=== PATIENT | female | born 1945 | race Caucasian/White ===

== ENCOUNTER 2018-03-24 18:31 | Inpatient (IN) | payer OTHER ==
[~2018-03-24] VITALS: Ht 160 cm; Wt 69.8 kg
[2018-03-25 14:15] VITALS: BP 106/72
[2018-03-25] MEDS ORDERED: ONDANSETRON 2MG/ML, 2ML IVPush PRN (14:30)
[2018-03-25] MEDS ORDERED: MORPHINE SULFATE 4 MG/ML, 1ML IVPush PRN (14:30)
[2018-03-25] MEDS ORDERED: ONDANSETRON ODT 4 MG PO PRN (14:30)
[2018-03-25] MEDS ORDERED: DO NOT GIVE MC SCH (15:00)
[2018-03-25] MEDS ORDERED: PLEASE ENTER ALLERGIES MC SCH (15:00)
[2018-03-25 15:14] LABS: BASOPHILS # (AUTO) 0.03 x10^3/uL (0-0.1); BASOPHILS % (AUTO) 0 % (0-1); EOSINOPHILS # (AUTO) 0.07 x10^3/uL (0-0.4); EOSINOPHILS % (AUTO) 1 % (1-7); LYMPHOCYTES # (AUTO) 1.09 x10^3/uL (1-3.4); LYMPHOCYTES % (AUTO) 16 % (22-44); MD NO; MEAN CORPUSCULAR HEMOGLOBIN 24.8 pg (27.0-34.8); MEAN CORPUSCULAR HGB CONC 31.7 g/dL (32.4-35.8); MEAN CORPUSCULAR VOLUME 78.4 fL (80-100); MEAN PLATELET VOLUME 8.8 fL (7.4-10.4); MONOCYTES # (AUTO) 0.73 x10^3/uL (0.2-0.8); MONOCYTES % (AUTO) 11 % (2-9); NEUTROPHILS # (AUTO) 4.86 x10^3/uL (1.8-6.8); NEUTROPHILS % (AUTO) 72 % (42-75); PLATELET COUNT 290 x10^3/uL (130-400); RED BLOOD COUNT 4.93 x10^6/uL (3.82-5.3); RED CELL DISTRIBUTION WIDTH 16.5 % (9.6-15.2)
[2018-03-25 15:22] LABS: ALANINE AMINOTRANSFERASE 17 U/L (12-78); ALBUMIN 3.8 g/dL (3.4-5.0); ANION GAP 5 mmol/L (5-15); CHLORIDE 107 mmol/L (98-107); CREATININE 0.71 mg/dL (0.55-1.02)
[2018-03-25 15:24] LABS: ALKALINE PHOSPHATASE 58 U/L (45-117); BILIRUBIN,TOTAL 0.6 mg/dL (0.2-1.0); TOTAL PROTEIN 7.7 g/dL (6.4-8.2)
[2018-03-25 15:36] LABS: INTERNATIONAL NORMALIZED RATIO 1.03 (0.93-1.1); PROTHROMBIN TIME 10.7 Seconds (9.6-11.5)
[2018-03-25 15:44] LABS: HEMOGLOBIN A1C 6.6 % (4.2-6.3)
[2018-03-25] MEDS: INSULIN LISPRO 100 UNITS/ML, PEN SQ-INSULIN SCH ×2 (16:00→22:02)
[2018-03-25] MEDS: CARVEDILOL 6.25 MG TABLET PO SCH (17:49)
[2018-03-25] MEDS ORDERED: LORazepam 0.5MG TABLET PO PRN (19:00)
[2018-03-25 20:04] VITALS: BP 96/63
[2018-03-25] MEDS: SODIUM CHLORIDE FLUSH 10ML SYR IVF SCH (20:47)
[2018-03-25] MEDS: ATORVASTATIN 10 MG TABLET PO SCH (20:47)
[2018-03-25 20:54] VITALS: BP_SYST 100; BP_SYST 109; BP_DIAS 67; BP_DIAS 74
[2018-03-25] MEDS: MUPIROCIN OINT 2%, 22GM TP SCH (22:02)
[2018-03-25] MEDS: CHLORHEXIDINE 15 ML BOTTLE MM SCH (22:10)
[2018-03-26 01:01] VITALS: BP 101/68
[2018-03-26 04:17] VITALS: BP_SYST 106; BP_SYST 113; BP_DIAS 71; BP_DIAS 77
[2018-03-26] MEDS: INSULIN LISPRO 100 UNITS/ML, PEN SQ-INSULIN SCH (05:09)
[2018-03-26] MEDS: CHLORHEXIDINE 15 ML BOTTLE MM SCH (05:13)
[2018-03-26] MEDS: MUPIROCIN OINT 2%, 22GM TP SCH ×2 (05:13→19:33)
[2018-03-26] MEDS: CARVEDILOL 6.25 MG TABLET PO SCH (05:14)
[2018-03-26 05:36] LABS: BASOPHILS # (AUTO) 0.03 x10^3/uL (0-0.1); BASOPHILS % (AUTO) 0 % (0-1); EOSINOPHILS # (AUTO) 0.08 x10^3/uL (0-0.4); EOSINOPHILS % (AUTO) 1 % (1-7); LYMPHOCYTES % (AUTO) 18 % (22-44); MD NO; MEAN CORPUSCULAR HEMOGLOBIN 25.3 pg (27.0-34.8); MEAN CORPUSCULAR HGB CONC 32.1 g/dL (32.4-35.8); MEAN PLATELET VOLUME 8.9 fL (7.4-10.4); MONOCYTES # (AUTO) 0.63 x10^3/uL (0.2-0.8); MONOCYTES % (AUTO) 10 % (2-9); NEUTROPHILS # (AUTO) 4.64 x10^3/uL (1.8-6.8); NEUTROPHILS % (AUTO) 71 % (42-75); PLATELET COUNT 267 x10^3/uL (130-400); RED BLOOD COUNT 4.89 x10^6/uL (3.82-5.3); RED CELL DISTRIBUTION WIDTH 15.6 % (9.6-15.2)
[2018-03-26 05:43] LABS: ALANINE AMINOTRANSFERASE 18 U/L (12-78); ALBUMIN 3.8 g/dL (3.4-5.0); ANION GAP 8 mmol/L (5-15); CALCIUM 9.2 mg/dL (8.5-10.1); CHLORIDE 106 mmol/L (98-107)
[2018-03-26 05:45] LABS: ALKALINE PHOSPHATASE 57 U/L (45-117); BILIRUBIN,TOTAL 0.7 mg/dL (0.2-1.0); TOTAL PROTEIN 7.8 g/dL (6.4-8.2)
[2018-03-26 06:00] LABS: MICROSCOPIC INDICATED
[2018-03-26] MEDS ORDERED: ASPIRIN 325 MG TABLET PO SCH (06:00)
[2018-03-26] MEDS ORDERED: HEPARIN 1,000 UNITS/ML, 10ML ONE (06:12)
[2018-03-26] MEDS ORDERED: PAPAVERINE 30 MG/ML, 2ML ONE (06:12)
[2018-03-26] MEDS ORDERED: SUFentanil 50 MCG/ML, 5ML ONE (06:46)
[2018-03-26] MEDS ORDERED: MIDAZOLAM 10MG/2 ML ONE (06:46)
[2018-03-26] MEDS ORDERED: VANCOMYCIN PMX 1GM/200ML 200 ML IV ONE (07:00)
[2018-03-26] MEDS ORDERED: CEFAZOLIN PMX 2GM/50ML 50 ML IVPB ONE (07:00)
[2018-03-26] MEDS ORDERED: ALBUMIN HUMAN 5% 500 ML IV PRN (07:30)
[2018-03-26] MEDS ORDERED: REGULAR INSULIN 62.5 UNITS in SODIUM CHLORIDE 0.9% 249.375 ML IV PRN ×2 (07:30→11:24)
[2018-03-26] MEDS ORDERED: MANNITOL PMX 20% 500 ML IVPB PRN (07:30)
[2018-03-26] MEDS ORDERED: DEXMEDETOMIDINE 200 MCG in SODIUM CHLORIDE 0.9% 48 ML IV SCH (07:30)
[2018-03-26] MEDS ORDERED: POTASSIUM CHLORIDE 80 MEQ, SODIUM BICARBONATE 8.4% 10 MEQ, MAGNESIUM SULFATE 0.5 GM, LI... IV PRN (07:30)
[2018-03-26] MEDS ORDERED: PHENYLEPHRINE 10 MG in SODIUM CHLORIDE 0.9% 249 ML IV PRN ×2 (07:30→11:24)
[2018-03-26] MEDS ORDERED: EPINEPHRINE 2 MG in SODIUM CHLORIDE 0.9% 248 ML IV SCH (07:30)
[2018-03-26] MEDS ORDERED: HEPARIN 1,000 UNITS/ML, 10ML IV ONE (08:22)
[2018-03-26] MEDS ORDERED: PAPAVERINE 30 MG/ML, 2ML IVPush ONE (08:24)
[2018-03-26] MEDS ORDERED: SPIRONOLACTONE 25 MG TABLET PO SCH (09:00)
[2018-03-26] MEDS ORDERED: AMLODIPINE 5 MG TABLET PO SCH (09:00)
[2018-03-26] MEDS ORDERED: VALSARTAN 80 MG TABLET PO SCH (09:00)
[2018-03-26] MEDS ORDERED: ROCURONIUM 10MG/ML,5ML ONE ×2 (09:42)
[2018-03-26] MEDS ORDERED: PROTAMINE SULFATE 10 MG/ML, 25ML ONE ×2 (09:42→10:39)
[2018-03-26] MEDS ORDERED: VASOPRESSIN 20 UNIT/ML, 1ML ONE (09:43)
[2018-03-26] MEDS ORDERED: AMINOCAPROIC ACID 250 MG/ML, 20ML ONE ×2 (09:43)
[2018-03-26] MEDS ORDERED: CALCIUM CHLORIDE 10%, 10ML SYR ONE (10:39)
[2018-03-26] MEDS ORDERED: HEPARIN 1,000 UNITS/ML, 30ML ONE (11:21)
[2018-03-26] MEDS ORDERED: ALBUMIN HUMAN 25% 50 ML ONE (11:22)
[2018-03-26] MEDS ORDERED: SODIUM BICARBONATE 1 MEQ/ML, 50ML VIAL ONE (11:22)
[2018-03-26] MEDS ORDERED: LIDOCAINE 2% 100MG/5ML SYRINGE ONE (11:22)
[2018-03-26] MEDS ORDERED: DEXMEDETOMIDINE 200 MCG in SODIUM CHLORIDE 0.9% 48 ML IV PRN (11:24)
[2018-03-26] MEDS ORDERED: NITROGLYCERIN/D5W PMX 250 ML IV PRN (11:24)
[2018-03-26] MEDS ORDERED: DOBUTAMINE 250 MG in SODIUM CHLORIDE 0.9% 230 ML IV PRN (11:24)
[2018-03-26] MEDS ORDERED: VASOPRESSIN 50 UNIT in SODIUM CHLORIDE 0.9% 250 ML IV PRN (11:24)
[2018-03-26] MEDS ORDERED: SODIUM CHLORIDE 0.9% 1,000 ML IV PRN (11:24)
[2018-03-26] MEDS ORDERED: morphine SULFATE 10 MG/ML, 1ML IVPush PRN (11:30)
[2018-03-26] MEDS ORDERED: PROCHLORPERAZINE 5 MG/ML, 2ML IVPush PRN (11:30)
[2018-03-26] MEDS ORDERED: DEXTROSE 50%, 50ML SYRINGE IVPush PRN (11:30)
[2018-03-26] MEDS ORDERED: BISACODYL 5 MG EC TABLET PO PRN (11:30)
[2018-03-26] MEDS ORDERED: VANCOMYCIN PMX 1GM/200ML 200 ML IVPB SCH (11:30)
[2018-03-26] MEDS ORDERED: DEXTROSE 4 GM TAB.CHEW PO PRN (11:30)
[2018-03-26] MEDS ORDERED: ACETAMINOPHEN 650 MG SUPP PR PRN (11:30)
[2018-03-26] MEDS ORDERED: GLUCAGON 1 MG IM PRN (11:30)
[2018-03-26] MEDS ORDERED: BISACODYL 10 MG SUPP PR PRN (11:30)
[2018-03-26] MEDS ORDERED: EPINEPHRINE 2 MG in SODIUM CHLORIDE 0.9% 248 ML IV PRN (11:30)
[2018-03-26] MEDS ORDERED: INSULIN REGULAR 100 UNITS/ML, 3ML VIAL IVPush PRN (11:30)
[2018-03-26] MEDS ORDERED: MIDAZOLAM 1 MG/ML, 5ML IVPush PRN (11:30)
[2018-03-26] MEDS ORDERED: SODIUM BICARB 8.4%, 50ML SYRINGE IV PRN (11:30)
[2018-03-26] MEDS ORDERED: CEFUROXIME 1.5 GM in SODIUM CHLORIDE 0.9% 50 ML IVPB SCH (11:30)
[2018-03-26] MEDS ORDERED: ACETAMINOPHEN 325 MG TABLET PO PRN (11:30)
[2018-03-26] MEDS ORDERED: ONDANSETRON 2MG/ML, 2ML IVPush PRN (11:30)
[2018-03-26 12:01] LABS: GLUCOSE BY BLOOD GAS ANALYZER 170 mg/dL (70-110); HEMOGLOBIN BY BLOOD GAS ANALYZ 10.9 g/dL (14.0-18.0)
[2018-03-26 12:10] LABS: INTERNATIONAL NORMALIZED RATIO 1.23 (0.93-1.1); PROTHROMBIN TIME 12.7 Seconds (9.6-11.5)
[2018-03-26] MEDS: MAGNESIUM SULFATE 1 GM in SODIUM CHLORIDE 0.9% 50 ML IVPB SCH (12:49)
[2018-03-26] MEDS: LACTATED RINGERS 1,000 ML IV PRN ×3 (13:16→15:55)
[2018-03-26] MEDS: DOCUSATE 100 MG CAPSULE PO SCH ×2 (13:18→19:33)
[2018-03-26] MEDS: SODIUM CHLORIDE FLUSH 10ML SYR IVF SCH ×2 (13:18→19:33)
[2018-03-26] MEDS: FUROSEMIDE 20 MG/2 ML IV SCH (13:18)
[2018-03-26] MEDS: KSCALE TO 4.5 IV SCH ×3 (13:19→23:09)
[2018-03-26] MEDS ORDERED: INSULIN LISPRO 100 UNITS/ML, PEN SQ-INSULIN SCH (16:00)
[2018-03-26] MEDS ORDERED: ALBUMIN HUMAN 5% 250 ML IV ONE (16:00)
[2018-03-26] MEDS: FENTANYL PF 100 MCG/2ML IVPush PRN ×2 (16:30→18:12)
[2018-03-26] MEDS: VANCOMYCIN PMX 1GM/200ML 200 ML IVPB SCH (19:32)
[2018-03-26] MEDS: CEFAZOLIN PMX 2GM/50ML 50 ML IVPB SCH (19:32)
[2018-03-26] MEDS ORDERED: SODIUM CHLORIDE FLUSH 10ML SYR IVF SCH (21:00)
[2018-03-26] MEDS: ATORVASTATIN 10 MG TABLET PO SCH (21:00)
[2018-03-26] MEDS: MUPIROCIN OINT 2%, 22GM NAS SCH (21:40)
[2018-03-26] MEDS ORDERED: POTASSIUM CHLORIDE PMX 100 ML IV ONE (23:00)
[2018-03-26] MEDS ORDERED: POTASSIUM CHLORIDE 20 MEQ in SODIUM CHLORIDE 0.9% 100 ML IV ONE (23:00)
[2018-03-26] MEDS: HYDROcodone/APAP 10/325 MG TABLET PO PRN (23:12)
[2018-03-27] MEDS: OXYcodone IR 5MG TABLET PO PRN ×4 (02:33→18:09)
[2018-03-27 04:26] LABS: BASOPHILS % (AUTO) 0 % (0-1); EOSINOPHILS % (AUTO) 0 % (1-7); LYMPHOCYTES # (AUTO) 0.37 x10^3/uL (1-3.4); LYMPHOCYTES % (AUTO) 4 % (22-44); MD NO; MEAN CORPUSCULAR HEMOGLOBIN 25.8 pg (27.0-34.8); MEAN CORPUSCULAR HGB CONC 32.1 g/dL (32.4-35.8); MEAN CORPUSCULAR VOLUME 80.4 fL (80-100); MEAN PLATELET VOLUME 9.3 fL (7.4-10.4); MONOCYTES # (AUTO) 0.76 x10^3/uL (0.2-0.8); MONOCYTES % (AUTO) 8 % (2-9); NEUTROPHILS # (AUTO) 8.29 x10^3/uL (1.8-6.8); NEUTROPHILS % (AUTO) 88 % (42-75); PLATELET COUNT 137 x10^3/uL (130-400); RED BLOOD COUNT 3.43 x10^6/uL (3.82-5.3); RED CELL DISTRIBUTION WIDTH 15.8 % (9.6-15.2)
[2018-03-27 04:36] LABS: INTERNATIONAL NORMALIZED RATIO 1.08 (0.93-1.1); PROTHROMBIN TIME 11.2 Seconds (9.6-11.5)
[2018-03-27 04:40] LABS: ALBUMIN 2.7 g/dL (3.4-5.0); ANION GAP 8 mmol/L (5-15); CALCIUM 7.2 mg/dL (8.5-10.1); CHLORIDE 113 mmol/L (98-107)
[2018-03-27 04:41] LABS: CREATININE 0.37 mg/dL (0.55-1.02)
[2018-03-27] MEDS: KSCALE TO 4.5 IV SCH (05:19)
[2018-03-27] MEDS: CEFAZOLIN PMX 2GM/50ML 50 ML IVPB SCH (05:49)
[2018-03-27] MEDS ORDERED: INSULIN LISPRO 100 UNITS/ML, PEN SQ-INSULIN SCH (07:00)
[2018-03-27] MEDS: VANCOMYCIN PMX 1GM/200ML 200 ML IVPB SCH (07:31)
[2018-03-27] MEDS: FUROSEMIDE 20 MG/2 ML IV SCH (08:40)
[2018-03-27] MEDS: MAGNESIUM HYDROXIDE 8%, 30ML UDC PO PRN (08:40)
[2018-03-27] MEDS: DOCUSATE 100 MG CAPSULE PO SCH ×2 (08:40→21:20)
[2018-03-27] MEDS: MUPIROCIN OINT 2%, 22GM NAS SCH ×2 (08:40→21:18)
[2018-03-27] MEDS: ASPIRIN 81 MG TABLET EC PO SCH (08:40)
[2018-03-27] MEDS: SODIUM CHLORIDE FLUSH 10ML SYR IVF SCH ×3 (08:40→21:14)
[2018-03-27] MEDS: KETOROLAC 30 MG/1 ML IVPush SCH ×3 (08:40→21:14)
[2018-03-27] MEDS: WARFARIN BIOPROSTHETIC VALVE PROTOCOL 2-3 XX SCH (09:00)
[2018-03-27 11:43] LABS: MICROSCOPIC INDICATED
[2018-03-27] MEDS: MAGNESIUM SULFATE 1 GM in SODIUM CHLORIDE 0.9% 50 ML IVPB SCH (12:01)
[2018-03-27] MEDS: CHLORHEXIDINE 15 ML BOTTLE MM SCH ×2 (12:01→21:23)
[2018-03-27 12:05] LABS: CULTURE INDICATED? NO
[2018-03-27] MEDS: INSULIN LISPRO 100 UNITS/ML, PEN SQ-INSULIN PRN ×2 (12:13→21:22)
[2018-03-27] MEDS ORDERED: WARFARIN 5 MG TABLET PO-COUM SCH (18:00)
[2018-03-27 18:41] VITALS: BP 90/57
[2018-03-27] MEDS: ATORVASTATIN 10 MG TABLET PO SCH (21:19)
[2018-03-27] MEDS: HYDROcodone/APAP 10/325 MG TABLET PO PRN (21:20)
[2018-03-28 01:21] VITALS: BP_SYST 97; BP_SYST 99; BP_DIAS 64
[2018-03-28] MEDS: KETOROLAC 30 MG/1 ML IVPush SCH ×4 (02:51→21:12)
[2018-03-28] MEDS: OXYcodone IR 5MG TABLET PO PRN ×3 (02:51→17:30)
[2018-03-28 05:59] LABS: INTERNATIONAL NORMALIZED RATIO 1.11 (0.93-1.1); PROTHROMBIN TIME 11.5 Seconds (9.6-11.5)
[2018-03-28 06:01] LABS: BASOPHILS # (AUTO) 0.01 x10^3/uL (0-0.1); BASOPHILS % (AUTO) 0 % (0-1); EOSINOPHILS # (AUTO) 0.33 x10^3/uL (0-0.4); EOSINOPHILS % (AUTO) 4 % (1-7); LYMPHOCYTES # (AUTO) 0.71 x10^3/uL (1-3.4); LYMPHOCYTES % (AUTO) 8 % (22-44); MD NO; MEAN CORPUSCULAR HEMOGLOBIN 26.1 pg (27.0-34.8); MEAN CORPUSCULAR HGB CONC 32.4 g/dL (32.4-35.8); MEAN CORPUSCULAR VOLUME 80.5 fL (80-100); MEAN PLATELET VOLUME 10.2 fL (7.4-10.4); MONOCYTES # (AUTO) 0.86 x10^3/uL (0.2-0.8); MONOCYTES % (AUTO) 9 % (2-9); NEUTROPHILS # (AUTO) 7.26 x10^3/uL (1.8-6.8); NEUTROPHILS % (AUTO) 79 % (42-75); PLATELET COUNT 126 x10^3/uL (130-400); RED BLOOD COUNT 3.22 x10^6/uL (3.82-5.3)
[2018-03-28 06:02] LABS: ANION GAP 4 mmol/L (5-15); CHLORIDE 106 mmol/L (98-107); CREATININE 0.78 mg/dL (0.55-1.02)
[2018-03-28 08:38] VITALS: BP 98/66
[2018-03-28] MEDS: FUROSEMIDE 20 MG/2 ML IV SCH (08:51)
[2018-03-28] MEDS: DOCUSATE 100 MG CAPSULE PO SCH ×2 (08:51→21:11)
[2018-03-28] MEDS: HYDROcodone/APAP 10/325 MG TABLET PO PRN ×3 (08:51→21:11)
[2018-03-28] MEDS: ASPIRIN 81 MG TABLET EC PO SCH (08:51)
[2018-03-28] MEDS: MUPIROCIN OINT 2%, 22GM NAS SCH ×3 (08:52→21:08)
[2018-03-28] MEDS: SODIUM CHLORIDE FLUSH 10ML SYR IVF SCH ×4 (08:52→21:12)
[2018-03-28] MEDS: WARFARIN BIOPROSTHETIC VALVE PROTOCOL 2-3 XX SCH (09:55)
[2018-03-28 12:44] VITALS: BP 102/66
[2018-03-28] MEDS: MAGNESIUM SULFATE 1 GM in SODIUM CHLORIDE 0.9% 50 ML IVPB SCH (12:51)
[2018-03-28] MEDS: CHLORHEXIDINE 15 ML BOTTLE MM SCH ×2 (12:51→21:11)
[2018-03-28] MEDS: INSULIN LISPRO 100 UNITS/ML, PEN SQ-INSULIN PRN ×2 (13:00→21:13)
[2018-03-28] MEDS ORDERED: WARFARIN 5 MG TABLET PO-COUM SCH (18:00)
[2018-03-28 19:36] VITALS: BP 101/66
[2018-03-28] MEDS: ATORVASTATIN 10 MG TABLET PO SCH (21:11)
[2018-03-29] MEDS: KETOROLAC 30 MG/1 ML IVPush SCH ×4 (02:22→20:25)
[2018-03-29] MEDS: OXYcodone IR 5MG TABLET PO PRN ×2 (02:23→12:17)
[2018-03-29 02:25] VITALS: BP 116/75
[2018-03-29] MEDS: HYDROcodone/APAP 10/325 MG TABLET PO PRN (04:38)
[2018-03-29] MEDS ORDERED: FUROSEMIDE 40 MG/4 ML ONE (05:12)
[2018-03-29] MEDS ORDERED: FUROSEMIDE 40 MG/4 ML IV ONE (05:30)
[2018-03-29 05:31] LABS: INTERNATIONAL NORMALIZED RATIO 1.32 (0.93-1.1); PROTHROMBIN TIME 13.7 Seconds (9.6-11.5)
[2018-03-29 05:41] LABS: ANION GAP 8 mmol/L (5-15); CALCIUM 7.3 mg/dL (8.5-10.1); CHLORIDE 104 mmol/L (98-107)
[2018-03-29 05:42] LABS: CREATININE 0.73 mg/dL (0.55-1.02)
[2018-03-29 06:33] LABS: BASOPHILS # (AUTO) 0.01 x10^3/uL (0-0.1); BASOPHILS % (AUTO) 0 % (0-1); EOSINOPHILS # (AUTO) 0.33 x10^3/uL (0-0.4); EOSINOPHILS % (AUTO) 4 % (1-7); LYMPHOCYTES # (AUTO) 0.64 x10^3/uL (1-3.4); LYMPHOCYTES % (AUTO) 8 % (22-44); MD SCAN; MEAN CORPUSCULAR HEMOGLOBIN 25.9 pg (27.0-34.8); MEAN CORPUSCULAR HGB CONC 32.4 g/dL (32.4-35.8); MEAN PLATELET VOLUME 10.2 fL (7.4-10.4); MONOCYTES # (AUTO) 0.66 x10^3/uL (0.2-0.8); MONOCYTES % (AUTO) 8 % (2-9); NEUTROPHILS # (AUTO) 6.41 x10^3/uL (1.8-6.8); NEUTROPHILS % (AUTO) 80 % (42-75); PLATELET COUNT 135 x10^3/uL (130-400); RED BLOOD COUNT 3.19 x10^6/uL (3.82-5.3); RED CELL DISTRIBUTION WIDTH 15.9 % (9.6-15.2)
[2018-03-29] MEDS: DOCUSATE 100 MG CAPSULE PO SCH ×2 (08:44→20:25)
[2018-03-29] MEDS: MAGNESIUM HYDROXIDE 8%, 30ML UDC PO PRN (08:44)
[2018-03-29] MEDS: ASPIRIN 81 MG TABLET EC PO SCH (08:44)
[2018-03-29] MEDS: FUROSEMIDE 20 MG/2 ML IV SCH (08:44)
[2018-03-29] MEDS: WARFARIN BIOPROSTHETIC VALVE PROTOCOL 2-3 XX SCH (08:45)
[2018-03-29] MEDS: SODIUM CHLORIDE FLUSH 10ML SYR IVF SCH ×4 (08:45→20:26)
[2018-03-29] MEDS: MUPIROCIN OINT 2%, 22GM NAS SCH ×2 (08:47→20:26)
[2018-03-29 09:00] VITALS: BP 110/70
[2018-03-29] MEDS: INSULIN LISPRO 100 UNITS/ML, PEN SQ-INSULIN PRN ×2 (12:18→20:35)
[2018-03-29 14:31] VITALS: BP 115/74
[2018-03-29] MEDS ORDERED: WARFARIN 5 MG TABLET PO-COUM SCH (18:00)
[2018-03-29] MEDS: HYDROcodone/APAP 5/325 TABLET PO PRN (18:18)
[2018-03-29 19:43] VITALS: BP 108/62
[2018-03-29] MEDS: ATORVASTATIN 10 MG TABLET PO SCH (20:25)
[2018-03-30 01:38] VITALS: BP 122/80
[2018-03-30] MEDS: KETOROLAC 30 MG/1 ML IVPush SCH ×4 (03:21→20:58)
[2018-03-30] MEDS: OXYcodone IR 5MG TABLET PO PRN ×2 (04:51→16:38)
[2018-03-30 04:54] LABS: BASOPHILS # (AUTO) 0.02 x10^3/uL (0-0.1); BASOPHILS % (AUTO) 0 % (0-1); EOSINOPHILS # (AUTO) 0.28 x10^3/uL (0-0.4); EOSINOPHILS % (AUTO) 5 % (1-7); LYMPHOCYTES # (AUTO) 0.48 x10^3/uL (1-3.4); LYMPHOCYTES % (AUTO) 8 % (22-44); MD NO; MEAN CORPUSCULAR HGB CONC 32.4 g/dL (32.4-35.8); MEAN CORPUSCULAR VOLUME 80.3 fL (80-100); MEAN PLATELET VOLUME 9.6 fL (7.4-10.4); MONOCYTES # (AUTO) 0.53 x10^3/uL (0.2-0.8); MONOCYTES % (AUTO) 9 % (2-9); NEUTROPHILS # (AUTO) 4.71 x10^3/uL (1.8-6.8); NEUTROPHILS % (AUTO) 78 % (42-75); PLATELET COUNT 160 x10^3/uL (130-400); RED BLOOD COUNT 3.28 x10^6/uL (3.82-5.3); RED CELL DISTRIBUTION WIDTH 16.1 % (9.6-15.2)
[2018-03-30 04:56] LABS: ANION GAP 8 mmol/L (5-15); CALCIUM 8.3 mg/dL (8.5-10.1); CHLORIDE 101 mmol/L (98-107)
[2018-03-30 04:57] LABS: CREATININE 0.58 mg/dL (0.55-1.02)
[2018-03-30 07:53] VITALS: BP 131/82
[2018-03-30 07:54] LABS: INTERNATIONAL NORMALIZED RATIO 1.7 (0.93-1.1); PROTHROMBIN TIME 17.5 Seconds (9.6-11.5)
[2018-03-30] MEDS: SODIUM CHLORIDE FLUSH 10ML SYR IVF SCH ×4 (09:00→20:59)
[2018-03-30] MEDS: WARFARIN BIOPROSTHETIC VALVE PROTOCOL 2-3 XX SCH (09:00)
[2018-03-30] MEDS: MUPIROCIN OINT 2%, 22GM NAS SCH ×2 (09:10→20:58)
[2018-03-30] MEDS: DOCUSATE 100 MG CAPSULE PO SCH ×2 (09:10→20:58)
[2018-03-30] MEDS: ASPIRIN 81 MG TABLET EC PO SCH (09:11)
[2018-03-30] MEDS: FUROSEMIDE 20 MG/2 ML IV SCH (09:16)
[2018-03-30] MEDS: HYDROcodone/APAP 5/325 TABLET PO PRN (11:37)
[2018-03-30] MEDS: INSULIN LISPRO 100 UNITS/ML, PEN SQ-INSULIN PRN ×2 (11:40→21:22)
[2018-03-30 12:26] LABS: MICROSCOPIC NOT IND
[2018-03-30 13:20] VITALS: BP 129/81
[2018-03-30] MEDS ORDERED: WARFARIN 5 MG TABLET PO-COUM ONE (18:00)
[2018-03-30 20:02] VITALS: BP 124/78
[2018-03-30] MEDS: ATORVASTATIN 10 MG TABLET PO SCH (20:58)
[2018-03-31] MEDS: OXYcodone IR 5MG TABLET PO PRN ×3 (01:36→21:08)
[2018-03-31 01:51] VITALS: BP 133/83
[2018-03-31] MEDS: KETOROLAC 30 MG/1 ML IVPush SCH ×2 (03:47→08:48)
[2018-03-31 06:19] LABS: INTERNATIONAL NORMALIZED RATIO 2.04 (0.93-1.1); PROTHROMBIN TIME 20.9 Seconds (9.6-11.5)
[2018-03-31 06:25] LABS: ANION GAP 6 mmol/L (5-15); CALCIUM 7.9 mg/dL (8.5-10.1); CHLORIDE 106 mmol/L (98-107); CREATININE 0.51 mg/dL (0.55-1.02)
[2018-03-31 07:16] LABS: MEAN PLATELET VOLUME 10.1 fL (7.4-10.4); PLATELET COUNT 200 x10^3/uL (130-400)
[2018-03-31 07:18] LABS: MEAN CORPUSCULAR HEMOGLOBIN 25.6 pg (27.0-34.8); MEAN CORPUSCULAR HGB CONC 32.2 g/dL (32.4-35.8); MEAN CORPUSCULAR VOLUME 79.6 fL (80-100); RED BLOOD COUNT 3.34 x10^6/uL (3.82-5.3); RED CELL DISTRIBUTION WIDTH 16.2 % (9.6-15.2)
[2018-03-31 07:37] LABS: MD MORPH REVIEW ONLY
[2018-03-31 07:38] LABS: <PLATELET ESTIMATE> ADEQUATE; ANISOCYTOSIS 1+; BASOPHILS % (AUTO) 0 % (0-1); EOSINOPHILS % (AUTO) 4 % (1-7); LYMPHOCYTES % (AUTO) 8 % (22-44); MICROCYTOSIS 1+; MONOCYTES % (AUTO) 10 % (2-9); NEUTROPHILS % (AUTO) 78 % (42-75); POLYCHROMASIA 1+
[2018-03-31 07:39] LABS: LARGE PLATELETS 1+
[2018-03-31] MEDS: WARFARIN BIOPROSTHETIC VALVE PROTOCOL 2-3 XX SCH (08:15)
[2018-03-31 08:40] VITALS: BP 135/79
[2018-03-31] MEDS: ASPIRIN 81 MG TABLET EC PO SCH (08:46)
[2018-03-31] MEDS: DOCUSATE 100 MG CAPSULE PO SCH ×2 (08:46→21:08)
[2018-03-31] MEDS: MUPIROCIN OINT 2%, 22GM NAS SCH (08:47)
[2018-03-31] MEDS: FUROSEMIDE 20 MG/2 ML IV SCH (08:48)
[2018-03-31] MEDS: SODIUM CHLORIDE FLUSH 10ML SYR IVF SCH ×4 (09:00→21:08)
[2018-03-31] MEDS: INSULIN LISPRO 100 UNITS/ML, PEN SQ-INSULIN PRN ×2 (13:03→21:16)
[2018-03-31 14:18] VITALS: BP 120/72
[2018-03-31] MEDS: HYDROcodone/APAP 5/325 TABLET PO PRN (17:34)
[2018-03-31] MEDS ORDERED: WARFARIN 5 MG TABLET PO-COUM ONE (18:00)
[2018-03-31 20:47] VITALS: BP 131/76
[2018-03-31] MEDS: ATORVASTATIN 10 MG TABLET PO SCH (21:08)
[2018-03-31] MEDS: DOXYCYCLINE 100MG TABLET PO SCH (21:09)
[2018-04-01] MEDS: HYDROcodone/APAP 10/325 MG TABLET PO PRN ×2 (00:40→08:44)
[2018-04-01 02:11] VITALS: BP 150/83
[2018-04-01 05:39] LABS: INTERNATIONAL NORMALIZED RATIO 2.35 (0.93-1.1)
[2018-04-01 05:47] LABS: CHLORIDE 107 mmol/L (98-107)
[2018-04-01 05:53] LABS: ANION GAP 7 mmol/L (5-15); CREATININE 0.47 mg/dL (0.55-1.02)
[2018-04-01 06:59] VITALS: BP 153/88
[2018-04-01] MEDS: WARFARIN BIOPROSTHETIC VALVE PROTOCOL 2-3 XX SCH (07:51)
[2018-04-01] MEDS: ASPIRIN 81 MG TABLET EC PO SCH (08:38)
[2018-04-01] MEDS: DOCUSATE 100 MG CAPSULE PO SCH (08:38)
[2018-04-01] MEDS: DOXYCYCLINE 100MG TABLET PO SCH (08:38)
[2018-04-01] MEDS: SODIUM CHLORIDE FLUSH 10ML SYR IVF SCH ×2 (08:38→08:39)
[2018-04-01] MEDS: FUROSEMIDE 20 MG/2 ML IV SCH (08:39)
[2018-04-01] MEDS ORDERED: FURO40TA6 PO (12:57)
[2018-04-01] MEDS ORDERED: DOCU-131 PO (12:57)
[2018-04-01] MEDS ORDERED: ATOR10TA9 PO (12:57)
[2018-04-01] MEDS ORDERED: DOXY100T PO (12:57)
[2018-04-01] MEDS ORDERED: ASPI-621 PO (12:57)
[2018-04-01] MEDS ORDERED: WARF5TAB PO-COUM (12:57)
[2018-04-01] MEDS ORDERED: POTA20TA6 PO (12:57)
[2018-04-01] MEDS ORDERED: LISINOPRIL 5 MG TABLET PO SCH (13:00)
[2018-04-01] MEDS ORDERED: LISI-424 PO (13:04)
[2018-04-01] MEDS ORDERED: POTA10TA6 PO (13:04)
[2018-04-01 13:55] VITALS: BP 152/83
[2018-04-01] MEDS ORDERED: WARFARIN 5 MG TABLET PO-COUM ONE (18:00)
== END 2018-04-01 16:42 | disposition home health service (06) | DRG 219 ==
LOC: 5SO 03-25 13:31 → CSU 03-26 09:00 → CCU 03-26 10:33 → 5SO 03-27 16:48
PROVIDERS: ADMIT Thoracic Surgery (Cardiothoracic Vascular Surgery); ATTEND Thoracic Surgery (Cardiothoracic Vascular Surgery)
PROC: 02100Z9 Bypass Coronary Artery, One Artery from Left Internal Mammary, Open Approach (ICD-10-PCS; 2018-03-26)
PROC: 021109W Bypass Coronary Artery, Two Arteries from Aorta with Autologous Venous Tissue, Open Approach (ICD-10-PCS; 2018-03-26)
PROC: 06BQ4ZZ Excision of Left Saphenous Vein, Percutaneous Endoscopic Approach (ICD-10-PCS; 2018-03-26)
PROC: 5A1221Z Performance of Cardiac Output, Continuous (ICD-10-PCS; 2018-03-26)
PROC: B246ZZ4 Ultrasonography of Right and Left Heart, Transesophageal (ICD-10-PCS; 2018-03-26)
PROC: 30233N1 Transfusion of Nonautologous Red Blood Cells into Peripheral Vein, Percutaneous Approach (ICD-10-PCS; 2018-03-26)
PROC: 0T9B70Z Drainage of Bladder with Drainage Device, Via Natural or Artificial Opening (ICD-10-PCS; 2018-03-26)
PROC: 02RF0KZ Replacement of Aortic Valve with Nonautologous Tissue Substitute, Open Approach (ICD-10-PCS; principal; 2018-03-26 07:30)
PROC: 0W9B3ZZ Drainage of Left Pleural Cavity, Percutaneous Approach (ICD-10-PCS; 2018-03-28)
PROC: 0W9B3ZZ Drainage of Left Pleural Cavity, Percutaneous Approach (ICD-10-PCS; 2018-03-30)
DX: I08.0 Rheumatic disorders of both mitral and aortic valves (principal); I50.43 Acute on chronic combined systolic (congestive) and diastolic (congestive) heart failure; J96.00 Acute respiratory failure, unspecified whether with hypoxia or hypercapnia; N39.0 Urinary tract infection, site not specified; I42.0 Dilated cardiomyopathy; J90 Pleural effusion, not elsewhere classified; I25.10 Atherosclerotic heart disease of native coronary artery without angina pectoris; I27.20 Pulmonary hypertension, unspecified; I11.0 Hypertensive heart disease with heart failure; E11.9 Type 2 diabetes mellitus without complications; E78.5 Hyperlipidemia, unspecified; M54.9 Dorsalgia, unspecified; G89.29 Other chronic pain; I70.0 Atherosclerosis of aorta; K44.9 Diaphragmatic hernia without obstruction or gangrene; S80.829A Blister (nonthermal), unspecified lower leg, initial encounter; X58.XXXA Exposure to other specified factors, initial encounter; Y93.89 Activity, other specified; Y92.89 Other specified places as the place of occurrence of the external cause; Z79.01 Long term (current) use of anticoagulants; Z79.84 Long term (current) use of oral hypoglycemic drugs; Z90.710 Acquired absence of both cervix and uterus; Z79.82 Long term (current) use of aspirin; Z79.899 Other long term (current) drug therapy; Z90.49 Acquired absence of other specified parts of digestive tract
CPT/HCPCS: 32555; 36415; 36600; 71045; 71046; 71250; 80048; 80053; 81001; 81003; 82040; 82330; 82800; 82803; 82810; 82947; 82962; 83036; 83735; 84132; 84295; 85014; 85018; 85025; 85049; 85610; 85730; 86850; 86900; 86923; 87070; 87081; 87205; 88305; 93005; 93312; 93321; 93325; 93880; 93970; 94003; 94150; C1768; J0690; J1644; J1815; J1885; J1940; J2250; J2720; J3010; J3370; J3475; J3480; J3490; P9041; P9047; C1751; C1760; J0171; J2270; J2370; J2440; J7050; J7120; P9016; P9045